=== PATIENT | male | born 1980 | race Caucasian/White ===

== ENCOUNTER 2020-05-23 10:26 | Outpatient (CLI) | payer OTHER ==
--- NOTE | 2020-05-23 13:44 | MRI ---
MR OF THE RIGHT SHOULDER WITHOUT CONTRAST: 05/23/20 INDICATION: History of acute right shoulder pain. COMPARISON: None. FINDINGS: There is moderate tendinosis of the supraspinatus and infraspinatus. Biceps tendon is located. There is mild tendinosis of the intra-articular biceps tendon. Biceps anchor complex superior glenoid labr um is intact. No full thickness tear is evident. A small amount of fluid is seen in the subacromial, subdeltoid bursa. There is mild AC joint osteoarthrosis. There is a type II acromion. No os acromiale is evident. Anterior inferior glenohumeral labral ligamentous complex is intact. Glenohumeral articu lar surface is normal appearing. No enlarged lymph nodes evident. IMPRESSION: 1. Moderate supraspinatus and infraspinatus tendinosis with mild amount of fluid distending the subacromial subdeltoid space may reflect bursitis. 2. Mild biceps tendinosis. 3. Mild AC joint osteoarthrosis. POS: BH
== END 2020-05-23 10:27 | disposition home or self-care (01) ==
LOC: BICMRI 10:26
PROVIDERS: ATTEND Orthopaedic Surgery
DX: M25.511 Pain in right shoulder (principal); M75.91 Shoulder lesion, unspecified, right shoulder; M19.011 Primary osteoarthritis, right shoulder